=== PATIENT | female | born 1935 | race Caucasian/White ===

== ENCOUNTER 2021-02-11 10:47 | Emergency (ER) | payer MEDICARE, BC ==
[~2021-02-11] VITALS: Ht 157.5 cm; Wt 56.2 kg
--- NOTE | 2021-02-11 12:06 | NUR ---
PT CAME IN CO "ORANGE SUBSTANCE SEEPING FROM MY HANDS AND ARMPITS". PT ALSO REPRORTS DIFFUSE ABD PAIN. BOTH STARTED ABOUT 2 WEEKS AGO .PT HAS HX OF GI BLEED. PT RESTING IN [facility]. LABS DRAWN. BLANKET PROVIDED
[2021-02-11 12:16] LABS: MICROSCOPIC NOT IND
[2021-02-11 12:17] LABS: BASOPHILS % (AUTO) 1 % (0-1); EOSINOPHILS % (AUTO) 2 % (1-7); LYMPHOCYTES % (AUTO) 39 % (22-44); MEAN CORPUSCULAR HEMOGLOBIN 26.8 pg (27.0-34.8); MEAN CORPUSCULAR HGB CONC 32.7 g/dL (32.4-35.8); MEAN PLATELET VOLUME 8.6 fL (7.4-10.4); MONOCYTES % (AUTO) 12 % (2-9); NEUTROPHILS % (AUTO) 46 % (42-75); PLATELET COUNT 281 x10^3/uL (130-400); RED CELL DISTRIBUTION WIDTH 16.8 % (9.6-15.2)
[2021-02-11 12:24] LABS: ALANINE AMINOTRANSFERASE 17 U/L (12-78); ALBUMIN 3.5 g/dL (3.4-5.0); ANION GAP 6 mmol/L (5-15); CALCIUM 9.3 mg/dL (8.5-10.1); CHLORIDE 100 mmol/L (98-107); CREATININE 1.12 mg/dL (0.55-1.02)
[2021-02-11 12:25] LABS: ALKALINE PHOSPHATASE 90 U/L (45-117); BILIRUBIN,TOTAL 0.5 mg/dL (0.2-1.0); TOTAL PROTEIN 7.1 g/dL (6.4-8.2)
[2021-02-11] MEDS ORDERED: OMNIPAQUE 350 MG/ML, 100ML BOTTLE ONE (12:58)
[2021-02-11 14:06] VITALS: BP 168/53
--- NOTE | 2021-02-11 14:09 | NUR ---
ROGER RN: Patient/Caregiver given discharge instructions and they have confirmed that they understand the instructions. Patient ambulatory with steady gait. NAD, all questions answered appropriately, denies additional needs at this time. No personal belongings left in room after discharge.
== END 2021-02-11 14:17 | disposition home or self-care (01) ==
LOC: ED 14:10
DX: K59.00 Constipation, unspecified (principal); R10.84 Generalized abdominal pain; I50.9 Heart failure, unspecified; I48.91 Unspecified atrial fibrillation; J44.9 Chronic obstructive pulmonary disease, unspecified; Z87.891 Personal history of nicotine dependence
CPT/HCPCS: 36415; 74177; 80053; 81003; 83690; 85025; 93005; 99285; Q9967